=== PATIENT | female | born 1950 | race Caucasian/White ===

== ENCOUNTER 2024-10-08 08:15 | Emergency (ER) | payer SELFPAY ==
[2024-10-08 08:16] VITALS: BP 162/82
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
--- NOTE | 2024-10-08 09:47 | EDRN ---
Re: med order. Ordered stat, but to be given just prior to MRI per Dr Verduzco.
[2024-10-08] MEDS: XANAX 0.5 MG PO (11:09)
[2024-10-08 12:54] VITALS: BP 149/74
[2024-10-08 13:23] VITALS: BMI 29.5
[2024-10-08 13:35] LABS: Hematocrit 43.3 % (37.0-47.0); Hemoglobin 14.1 g/dL (12.0-16.0); Mean Corp Hgb Conc. 32.6 g/dL (33.0-37.0); Mean Corpuscular Volume 82.8 fL (81.0-99.0); Nucleated Red Blood Cells % 0 %; Platelet Count 283 10^3/uL (130-400); Red Cell Dist. Width 13.8 % (11.5-14.5)
[2024-10-08] MEDS: OFIRMEV 100 IV (13:36)
[2024-10-08 13:54] LABS: Blood Urea Nitrogen 13 mg/dl (7-17); Calcium 9.4 mg/dl (8.4-10.2); Carbon Dioxide 24 mmol/L (22-30); Chloride 109 mmol/L (98-107); Estimated Creatinine Clearance 81 ml/min; Glucose 107 mg/dl (70-99); Potassium 4.3 mmol/L (3.5-5.1); Sodium 140 mmol/L (135-145); eGFR > 60.00
[2024-10-08] MEDS: DILAUDID 0.25 MG IV (14:39)
== END 2024-10-08 16:03 | disposition short-term general hospital (02) ==
LOC: EMR 08:15
PROVIDERS: EMERGENCY PHYSICIAN Emergency Medicine
DX: S19.80XA Other specified injuries of unspecified part of neck, initial encounter (principal); M50.222 Other cervical disc displacement at C5-C6 level; M79.602 Pain in left arm; M79.601 Pain in right arm; V49.9XXA Car occupant (driver) (passenger) injured in unspecified traffic accident, initial encounter; Y92.410 Unspecified street and highway as the place of occurrence of the external cause; E11.9 Type 2 diabetes mellitus without complications; E04.1 Nontoxic single thyroid nodule
CPT/HCPCS: 99285; 96374; 96375; 72141; 80048; 85025